=== PATIENT | male | born 1975 | race Caucasian/White ===

== ENCOUNTER 2019-04-08 22:07 | Emergency (ER) | payer MEDICAID ==
[2019-04-08] MEDS ORDERED: ASPIRIN 81 MG TABLET, CHEWABLE PO ONE (22:17)
[2019-04-08 23:09] VITALS: BP 130/76
--- NOTE | 2019-04-08 23:17 | RADIOLOGY REPORT (SQ) ---
EXAM DESCRIPTION: [facility]: XR CHEST 1 VIEW CLINICAL HISTORY: 43 years Male, cp COMPARISON: None. FINDINGS: Lungs are clear, with no focal infiltrate, pneumothorax, or pleural effusion. Mediastinum is within normal limits for this positioning. Bony structures are unremarkable. IMPRESSION: 1. No acute pulmonary findings.
[2019-04-09 01:05] LABS: ALANINE AMINOTRANSFERASE 102 U/L (21-72); ALBUMIN 5.3 g/dL (3.5-5.0); ALKALINE PHOSPHATASE 51 U/L (38-126); ANION GAP 14 (5-19); ASPARTATE AMINO TRANSFERASE 51 U/L (17-59); BILIRUBIN,DIRECT 0.3 mg/dL (0.0-0.4); BILIRUBIN,TOTAL 0.5 mg/dL (0.2-1.3); BLOOD UREA NITROGEN 15 mg/dL (7-20); CARBON DIOXIDE 29 mmol/L (22-30); CHLORIDE 94 mmol/L (98-107); CREATINE KINASE 115 U/L (55-170); GLUCOSE 92 mg/dL (75-110); POTASSIUM 3.9 mmol/L (3.6-5.0); SODIUM 137.3 mmol/L (137-145); TOTAL PROTEIN 8.8 g/dL (6.3-8.2)
[2019-04-09 01:09] LABS: ABSOLUTE BASOPHILS # (AUTO) 0.1 10^3/uL (0.0-0.2); ABSOLUTE EOSINOPHILS # (AUTO) 0.1 10^3/uL (0.0-0.6); ABSOLUTE LYMPHOCYTES (AUTO) 2.6 10^3/uL (0.5-4.7); ABSOLUTE MONOCYTES (AUTO) 0.7 10^3/uL (0.1-1.4); ABSOLUTE NEUT (AUTO) 3.6 10^3/uL (1.7-8.2); BASOPHILS % (AUTO) 1.4 % (0-2); EOSINOPHILS % (AUTO) 1.2 % (0-6); HEMATOCRIT 43.8 % (37.9-51.0); HEMOGLOBIN 15.1 g/dL (13.5-17.0); LYMPHOCYTES % (AUTO) 36.7 % (13-45); MEAN CORPUSCULAR HEMOGLOBIN 30.2 pg (27.0-33.4); MEAN CORPUSCULAR HGB CONC 34.4 g/dL (32.0-36.0); MEAN CORPUSCULAR VOLUME 88 fl (80-97); MONOCYTES % (AUTO) 9.5 % (3-13); PLATELET COUNT 190 10^3/uL (150-450); RED BLOOD COUNT 4.98 10^6/uL (4.35-5.55); SEGMENTED NEUTROPHILS % (AUTO) 51.2 % (42-78); TOTAL CELLS COUNTED % (AUTO) 100 %
[2019-04-09 01:21] LABS: CREATINE KINASE MB 1.17 ng/mL (<4.55)
[2019-04-09 01:24] LABS: TROPONIN I < 0.012 ng/mL
--- NOTE | 2019-04-09 01:24 | ER Document Report ---
ED Medical Screen (RME) - General Chief Complaint: Chest Pain Stated Complaint: CHEST PAIN Time Seen by Provider: 04/09/19 01:14 Mode of Arrival: Wheelchair Information source: Patient, Parent Notes: 43-year-old male presented to ED for complaint of chest pain tightness to the left side of his chest for 3 days. He also has epigastric pain for several months. He is alert oriented respirations regular and unlabored speaking in full sentences. He states he has an appointment with a primary care on Monday. He states he also feels like he might be having panic attacks. He states he feels like his heart is dropping out and getting become very scant. Patient is in no acute distress at this time. He states he is disabled and has a hard time getting in and out of the chair. I have greeted and performed a rapid initial assessment of this patient. A comprehensive ED assessment and evaluation of the patient, analysis of test results and completion of medical decision making process will be conducted by an additional ED providers. Dictation of this chart was performed using voice recognition software; therefore, there may be some unintended grammatical errors. TRAVEL OUTSIDE OF THE [place] IN LAST 30 DAYS: No Physical Exam - Vital signs Vitals: Temp Pulse Resp BP Pulse Ox 98.2 F 76 20 130/76 H 94 04/08/19 23:07 04/08/19 23:07 04/08/19 23:07 04/08/19 23:07 04/08/19 23:07 Course - Vital Signs Vital signs: Temp Pulse Resp BP Pulse Ox 98.2 F 76 20 130/76 H 94 04/08/19 23:07 04/08/19 23:07 04/08/19 23:07 04/08/19 23:07 04/08/19 23:07 - Laboratory Result Diagrams: 04/09/19 00:27 04/09/19 00:27 Laboratory results interpreted by me: 04/09/19 00:27 Chloride 94 L Calcium 11.0 H ALT 102 H Total Protein 8.8 H Albumin 5.3 H
--- NOTE | 2019-04-09 07:57 | EKG REPORT ---
SEVERITY:- BORDERLINE ECG - SINUS RHYTHM LEFT VENTRICULAR HYPERTROPHY : Confirmed by: Van Samuel MD 09-Apr-2019 07:56:25
== END 2019-04-09 04:35 | disposition left against medical advice (07) ==
LOC: ER 22:07
DX: R07.89 Other chest pain (principal); R10.13 Epigastric pain; Z53.20 Procedure and treatment not carried out because of patient's decision for unspecified reasons
CPT/HCPCS: 36415; 71045; 80053; 82550; 82553; 83690; 84484; 85025; 93005; 93010; 99281